=== PATIENT | female | born 1960 | race Caucasian/White ===

== ENCOUNTER 2016-06-30 08:47 | Emergency (ER) | payer BC ==
[2016-06-30] MEDS ORDERED: KETOROLAC TROMETHAMINE 30 MG/ML VIAL IV ONE (09:09)
[2016-06-30] MEDS ORDERED: NORMAL SALINE 1,000 ML IV ONE (09:09)
[2016-06-30] MEDS ORDERED: PROMETHAZINE HCL 12.5 MG in DEXTROSE 5 % IN WATER 50 ML IV ONE ×2 (09:10)
--- NOTE | 2016-06-30 09:17 | ERNOTE ---
Back Pain ER HPI Date of Service: 06/30/16 Presenting Symptoms: other - back pain Time Seen by Provider: 06/30/16 09:05 Source: patient Exam Limitations: no limitations Immunizations: IMMUNIZATION HX History of Influenza Vaccine Yes Allergies/Adverse Reactions: Allergies latex Allergy (Verified 06/30/16 09:01) Home Medications: HOME MEDICATIONS Cefuroxime Axetil [Ceftin] 250 mg PO Q12H #14 tab 06/30/16 [Last Taken Unknown] Cyclobenzaprine HCl [Flexeril] 10 mg PO HS 06/30/16 [Last Taken Unknown] Ibuprofen [Motrin] 200 - 400 mg PO Q6H PRN 06/30/16 [Last Taken Unknown] Ondansetron [Zofran Odt] 4 mg PO Q8H PRN #20 tab 06/30/16 [Last Taken Unknown] oxyCODONE HCL/ACETAMINOPHEN [Percocet 5 MG/325 MG] 1 tab PO Q6H PRN #15 tablet 06/30/16 [Last Taken Unknown] Narrative: Patient presents to the ED for right back pain. She relates this pain hit her 24 hours ago. She has never had pain like this before. She has strained her back earlier in the week but this was improved. No trauma. Pain radiates around from right back to RLQ. No vomiting but nausea noted. Nothing makes it better but palpation does make it worse. Has not seen anyone else about this. No fever. No blood in urine. She cannot get comprtable and is pacing. No new N /T/W in the legs. Pain can be severe and is waxing and waning. Timing: Reports: constant, other - fluctuatin intensity Quality/Severity: Reports: severe, aching Location of pain: Reports: other - right back Activities at Onset: Reports: none, other - In the shower when it started. Recent Injury?: Reports: no Possible Precipitating Factor: Reports: none Modifying Factors - (Improves): Reports: nothing Modifying Factors - (Worsens): Reports: other - palpation Associated Symptoms: Reports: nausea/vomiting, none - She has chronic numbness and weakness in the legs, denies anything new.. Denies: fever/chills, constipation/incontinence, problems urinating, difficulty walking, lightheadedness, numbess/weakness in legs Prior Treament: Denies: recently seen Review of Systems - Review of Systems Constitutional: Absent: fever EYE: Present: no symptoms reported ENT: Present: no symptoms reported Respiratory: Absent: shortness of breath Cardiology: Absent: chest pain Gastrointestinal/Abdominal: Present: See HPI Genitourinary: Present: See HPI Musculoskeletal: Present: back pain Skin: Absent: rash All Other Systems: All systems neg except as marked - Patient's Past Medical History Patient History - Medical: No pertinent hx Patient History - Cardiac/Respiratory: Hypertension, Hyperlipidemia Patient History - Cancer: Breast Patient History - Surgical Procedures: Patient History - Other: None - Social History Living Situations: home Psych History: No pertinent hx Smoking Status: Former smoker - Immunizations History of Influenza Vaccine: Yes Physical Exam - Physical Exam General Appearance: Present: alert, other - Pacing in the room. Holding an emesis basin.. Well hydrated, no acute distress. Eye Exam: Normal inspection: bilateral, PERRL: bilateral Ears, Nose, Throat: Present: normal ENT inspection Neck: Present: normal inspection Respiratory: Present: no respiratory distress, no accessory muscle use, lungs clear Cardiovascular/Chest: Present: regular rate, rhythm Gastrointestinal/Abdominal: Present: normal bowel sounds, nontender, soft, no organomegaly. Absent: tenderness, guarding, rebound Back Exam: Present: no vertebral tenderness, CVA tenderness (R), other - there is also significant muscular tenderness right back musculature, this could be muscular in nature but cannto r/o kidney stone Extremity Exam: Present: normal inspection Neurological Exam: Present: alert, normal mood/affect, other - No acute focal motor or sensotry deficits. Gait stable. No cauda-equina syndrome or unilateral motor/sensory acute deficits. Skin Exam: Absent: skin rash ED Progress - Results and Orders Patient's Lab Results:: I have reviewed the patient's lab results. - Vital Signs Patient's Vital Signs:: I have reviewed the patient's vital signs. Vital Signs: Vital Signs 06/30/16 08:53 Temperature 36.8 C Pulse Rate 78 Respiratory 12 Rate Blood Pressure 161/81 O2 Sat by Pulse 100 Oximetry - CT/Ultrasound CT/Ultrasound Narrative: I reviewed the official radiology report - Progress/Reassessment Chief Complaint: Back Pain Progress Note-Subjective: 06/30/16 10:59 No evienceof kidney stone. Her RUQ is not tender. No need for emergent US for the GB findings on CT. She relates years of low back pain and radicular pain. She tells me she cannot take tramadol and that norco makes her vomit. SHe asks for dilaudid for home as that has worked for her in the past. I told her that I was not comfortable giving her dilaudid for home use. She was agreeable to percocet/zofran for now and a referral to back surgeon. She relates 2 years of back pain with chronic weakness and numbness in the legs. No acute or new N/T/ W. MNo loss of bowel or bladder control. Nothing here to suggest cauda-equina syndrome or other acute neuro deficit. Departure Clinical Impression: Back pain - Departure Condition: Stable Instructions: Back Pain, Adult Additional Instructions: CAll Dr John's office saturday for an appointment. No driving with pain medications. Take antibiotic as directed. Follow-up with primary doctor in 3 days. Return for vomiting, fever, loss of bowel or bladder control, new numbness, tingling, weakness or if your condition worsens or changes in any way. Referrals: Kaden John MD [[facility]] - Prescriptions: Cefuroxime Axetil [Ceftin] 250 mg PO Q12H #14 tab Ondansetron [Zofran Odt] 4 mg PO Q8H PRN #20 tab PRN Reason: Nausea oxyCODONE HCL/ACETAMINOPHEN [Percocet 5 MG/325 MG] 1 tab PO Q6H PRN #15 tablet PRN Reason: Pain
--- OUTSIDE RECORDS SUMMARY | 2016-06-30 09:19 | XMS REPORT | Continuity of Care Document ---
:1960 Author Organization [facility] ([facility]) Address [address] [place] [address] Phone [phone] Care Team Providers Name Role Phone Héctor Gina Primary Care Provider [phone] Source Comments This disclosure is being made pursuant to the Care Everywhere program, applicable federal and state laws, and may not contain all informaitonavailable regarding this patient.[facility] ([facility]) Active Allergies and Adverse Reactions Allergen Noted Date Severity Reactions Comments Calcium Carbonate 11/10/2012 Rash Current Medications Prescription Sig. Disp. Refills Start Date End Date Status CYCLOBENZAPRINE HCL Take 1 Tab by Active (FLEXERIL PO) mouth at bedtime as needed. Unsure of dosage. ibuprofen 200 mg tablet Take 200 mg by Active mouth every 6 hours as needed. ASPIRIN/ACETAMINOPHEN/CAFF Take by mouth as Active EINE (EXCEDRIN MIGRAINE needed. PO) ferrous sulfate 325 mg (65 Take 325 mg by Active mg iron) tablet mouth daily. naproxen 250 mg tablet Take 250 mg by Active mouth 2 times daily with meals. glucosamine-chondroitin Take 3 tablets by Active 750-600 mg per tablet mouth daily. calcium carbonate (500 mg Take 500 mg by Active Ca) 1250 mg tablet mouth daily Active Problems Problem Noted Date History of breast cancer 04/08/2012 Swelling of limb 04/10/2011 Encounter for occupational therapy 04/10/2011 Breast cancer 01/10/2010 Most Recent Encounters Date Type Specialty Providers Description 05/08/2016 Office Visit Women's Health Alyssa Hollins, Dx: History of breast [employer] cancer (Primary Dx) Marialuisa Gonsalez MD 05/08/2016 Hospital Encounter Radiology Mansoor Jimenez, Dx: Encounter for MD screening mammogram for malignant neoplasm of breast Social History Tobacco Use Types Packs/Day Years Used Date Former Smoker Cigarettes 1 18 Quit: 12/18/2009 Smokeless Tobacco: Never Used Tobacco Cessation:Counseling Given: Yes Comments: Alcohol Use Drinks/Week oz/Week Comments Yes 1 Glasses of wine 1 Standard drinks or equivalent Last Filed Vital Signs Vital Sign Reading Time Taken Blood Pressure 131/79 05/08/2016 10:13 AM [employer] Pulse 80 05/08/2016 10:13 AM [employer] Temperature 36.8 C (98.2 F) 04/26/2015 8:33 AM [employer] Respiratory Rate 16 03/29/2014 9:28 AM [employer] Height 1.803 m (5' 11") 05/08/2016 10:13 AM [employer] Weight 95.3 kg (210 lb 1.6 oz) 05/08/2016 10:13 AM [employer] Body Mass Index 29.32 05/08/2016 10:13 AM [employer] Oxygen Saturation 99% 03/29/2014 9:28 AM [employer] Plan of Care Date Type Specialty Providers Description 05/16/2017 Appointment Radiology Subj: Appointment Scheduled 05/16/2017 Appointment Women's Health Alyssa Hollins ARNP Subj: Appointment [address] [place] [place] [address] [phone] (Fax) Health Maintenance Due Date Last Done Comments HCV Screening 1960 Hepatitis B Vaccine (1 of 3 1960 - Primary Series) Tdap Vaccine 1973 Lipid Disorder Screening 01/23/1980 MMR Vaccine 01/23/1980 Td Vaccine 01/23/1980 Pneumococcal Vaccine (1 of 3 1981 - PCV13) Cervical Cancer Screening 01/23/1992 Colonoscopy 2012 Influenza Vaccine: Seasonal 12/19/2015 (#1) Mammogram 05/08/2017 05/08/2016, Additional history exists 04/26/2015, 04/20/2014 Results from Last 3 Months BI DIGITAL SCREENING MAMMOGRAM UNI LEFT& YVETTE (05/08/2016 9:48 AM) Impressions Impression: Benign findings in the left breast. Recommendations:Continue annual screening mammogram. These results were provided to the patient by letter. Final Assessment: Benign finding. BIRADS category 2. Narrative Procedure: BI DIGITAL SCREENING MAMMOGRAM UNI LEFT & YVETTE Technique:Digital mammogram with Tomosynthesis, left CC and MLO views. Clinical Indication:Breast cancer screening Personal History of breast cancer: Yes, right-sided in 2009status post mastectomy Personal Delivery History: At age 32 or later Personal History of biopsy proven benign breast disease: No Personal history of reduction mammoplasty: Yes, left side Family History of breast cancer: No Date of Comparison Study: 04/26/2015, 04/20/2014, 04/14/2015, 04/08/2012 and 04/05/2011 Parenchymal Radiodensity: There are scattered areas of fibroglandular density. Findings: Post reduction changes in the left breast are again noted. Otherwise, there is no suspicious mass, microcalcifications or architectural distortion in the left breast. Procedure Note Kieran, Incoming Imaging Results - Tue May 08, 2016 10:01 AM [employer] Procedure: BI DIGITAL SCREENING MAMMOGRAM UNI LEFT & YVETTE Technique: Digital mammogram with Tomosynthesis, left CC and MLO views. Clinical Indication: Breast cancer screening Personal History of breast cancer: Yes, right-sided in 2009 status post mastectomy Personal Delivery History: At age 32 or later Personal History of biopsy proven benign breast disease: No Personal history of reduction mammoplasty: Yes, left side Family History of breast cancer: No Date of Comparison Study: 04/26/2015, 04/20/2014, 04/14/2015, 04/08/2012 and 04/05/2011 Parenchymal Radiodensity: There are scattered areas of fibroglandular density. Findings: Post reduction changes in the left breast are again noted. Otherwise, there is no suspicious mass, microcalcifications or architectural distortion in the left breast. IMPRESSION Impression: Benign findings in the left breast. Recommendations: Continue annual screening mammogram. These results were provided to the patient by letter. Final Assessment: Benign finding. BIRADS category 2.
[2016-06-30 09:26] LABS: Hematocrit 40.3 % (37.0-47.0); Hemoglobin 13.5 gm/dL (12.5-16.0); Mean Cell Volume 86.7 fl (78-100); Mean Corpuscular Hgb Conc 33.5 g/dl (32-36); Mean Platelet Volume 9.4 fl (6.0-9.5); Neutrophil # 4.4 K/mm3 (1.3-6.0); Neutrophil % 74.4 % (42-75.0); Platelet Count 304 K/mm3 (150-450); Red Blood Count 4.65 M/mm3 (4.2-5.4); Red Cell Distribution Width 12.5 % (11.5-14.0); White Blood Count 5.9 K/mm3 (4.0-10.5)
[2016-06-30] MEDS ORDERED: KETOROLAC TROMETHAMINE 30 MG/ML VIAL ONE (09:34)
[2016-06-30 09:36] LABS: Urine Bilirubin Negative (NEGATIVE); Urine Ketone 50 mg/dL (NEGATIVE); Urine Protein Negative (NEGATIVE); Urine Specific Gravity 1.015 SP.GR. (1.005-1.010); Urine Urobilinogen Normal (NORMAL)
[2016-06-30 09:43] LABS: Urine Appearance Cloudy; Urine Blood 10 /ul (NEGATIVE); Urine Color Yellow; Urine Nitrite Positive (NEGATIVE); Urine RBC 0-5 /hpf (0-5); Urine WBC 0-5 /hpf (0-5)
[2016-06-30 09:43] LABS: Albumin * 4.4 gm/dl (3.4-5.0); Anion Gap 15.8 mmol/L (6.8-13.8); Bilirubin, Total 0.7 mg/dL (0.0-1.1); Calcium * 9.6 mg/dL (7.9-10.9); Carbon Dioxide 25.3 mmol/L (24-32.6); Potassium 4.1 mmol/L (3.4-4.6); Total Protein 7.9 gm/dL (6.2-8.2)
[2016-06-30 09:44] LABS: Urine Amorphous Sediment Few - 1+ (NONE-FEW); Urine Bacteria 1+
[2016-06-30 11:27] VITALS: BP 121/68
== END 2016-06-30 11:25 | disposition home or self-care (01) ==
LOC: ER 08:47
DX: M54.9 Dorsalgia, unspecified (principal); Z87.891 Personal history of nicotine dependence; Z85.3 Personal history of malignant neoplasm of breast